=== PATIENT | female | born 1940 | race Hispanic/Latino ===

== ENCOUNTER 2017-04-09 13:23 | Outpatient (CLI) | payer MEDICARE ==
--- NOTE | 2017-04-09 14:21 | XRay Report ---
XRAY RIGHT KNEE 4 THREE VIEWS: 04/09/17 CLINICAL: Right knee pain. FINDINGS: Moderate osteopenia. 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 No apparent loosening. No fracture or dislocation.No joint effusion.Normal soft tissues. IMPRESSION: Osteopenia and otherwise normal study status post total knee replacement.
== END 2017-04-09 13:24 | disposition home or self-care (01) ==
LOC: SPVIMAG 13:23
PROVIDERS: ATTEND Orthopaedic Surgery Sports Medicine
DX: M85.861 Other specified disorders of bone density and structure, right lower leg (principal); Z96.651 Presence of right artificial knee joint